=== PATIENT | female | born 1980 | race Caucasian/White ===

== ENCOUNTER 2016-10-27 05:28 | Inpatient (IN) | payer MEDICAID ==
[2016-10-27 07:22] VITALS: RESP 16
[2016-10-27] MEDS ORDERED: MAGNESIUM HYDROXIDE 2,400 MG/10 ML CUP PO PRN (07:26)
[2016-10-27] MEDS ORDERED: ZIPRASIDONE 20 MG VIAL IM PRN (07:26)
[2016-10-27] MEDS ORDERED: MAG HYDROX/AL HYDROX/SIMETH 30 ML CUP PO PRN (07:26)
[2016-10-27] MEDS ORDERED: LORazepam 2 MG/ML SYRINGE IM PRN (07:33)
[2016-10-27] MEDS: NICOTINE 14MG/24HR PATCH TRANSDERM SCH (08:25)
[2016-10-27] MEDS: LORazepam 1 MG TAB PO PRN (16:24)
[2016-10-27] MEDS: ACETAMINOPHEN TAB 325 MG TAB PO PRN (16:24)
[2016-10-27] MEDS: QUEtiapine 200 MG TAB PO SCH (21:39)
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
[2016-10-28 06:52] VITALS: BP 120/74; PULSE 99; TEMP 98.2
[2016-10-28] MEDS: NICOTINE 14MG/24HR PATCH TRANSDERM SCH ×2 (07:55→09:00)
[2016-10-28] MEDS: DULoxetine HCL 30 MG CAPSULE.DR PO SCH (07:55)
[2016-10-28] MEDS: LORazepam 1 MG TAB PO PRN ×2 (08:58→21:10)
[2016-10-28 10:02] LABS: ALT 49 U/L (9-52); AST 32 U/L (14-36); Alkaline Phosphatase 58 U/L (38-126); Blood Urea Nitrogen 8 mg/dL (7-17); Calcium 8.8 mg/dL (8.4-10.2); Chloride 104 mmol/L (98-107); Glucose 92 mg/dL (74-99); Non-African American GFR(MDRD) >60 (>60 ml/min/1.73 sqM); Potassium 3.3 mmol/L (3.5-5.1); Sodium 140 mmol/L (137-145); Total Bilirubin 0.3 mg/dL (0.2-1.3); Total Protein 5.7 g/dL (6.3-8.2)
[2016-10-28 10:09] LABS: Basophils % (A) 1 %; CH 30.4; CHCM 33.7; Eosinophils # (A) 0.2 k/uL (0-0.7); Eosinophils % (A) 4 %; HCT 32.8 % (34.0-46.0); HDW 2.61; HGB 10.9 gm/dL (11.4-16.0); Luc % (Auto) 3; Lymphocytes # (A) 3.4 k/uL (1.0-4.8); Lymphocytes % (A) 56 %; MCH 30.1 pg (25.0-35.0); MCHC 33.2 g/dL (31.0-37.0); MCV 90.6 fL (80.0-100.0); Mean Platelet Volume 7.8; Monocytes # (A) 0.3 k/uL (0-1.0); Monocytes % (A) 5 %; Neutrophils % (A) 32 %; RBC 3.63 m/uL (3.80-5.40); RDW 15.3 % (11.5-15.5); WBC 6.1 k/uL (3.8-10.6); WBC (Perox) 6.83
[2016-10-28 10:16] LABS: Anion Gap 7 mmol/L; Carbon Dioxide 29 mmol/L (22-30)
[2016-10-28 12:24] LABS: Manual Review Performed
[2016-10-28 12:25] LABS: RBC Morphology Normal
[2016-10-28] MEDS ORDERED: BACLOFEN 10 MG TAB PO PRN (13:24)
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
[2016-10-28] MEDS: GABAPENTIN 300 MG CAP PO SCH (21:10)
[2016-10-28] MEDS: QUEtiapine 200 MG TAB PO SCH (21:10)
[2016-10-29] MEDS ORDERED: PANTOPRAZOLE 40 MG TABLET PO SCH (07:30)
[2016-10-29] MEDS: DULoxetine HCL 30 MG CAPSULE.DR PO SCH (08:22)
[2016-10-29] MEDS: NICOTINE 14MG/24HR PATCH TRANSDERM SCH (08:22)
[2016-10-29] MEDS: GABAPENTIN 300 MG CAP PO SCH (08:22)
[2016-10-29] MEDS: ACETAMINOPHEN TAB 325 MG TAB PO PRN (08:24)
[2016-10-29] MEDS: LORazepam 1 MG TAB PO PRN (08:25)
[2016-10-29] MEDS ORDERED: MELOXICAM 7.5 MG TAB PO SCH (09:00)
[2016-10-29] MEDS ORDERED: ASPIRIN 81 MG PO SCH (09:00)
--- NOTE | 2016-11-01 21:20 | CONS ---
CONSULTATION CHIEF COMPLAINT: Major depression. HISTORY OF PRESENT ILLNESS: This is another psych admission for this 36-year-old female. She has a longstanding history of depression and also hypertension. She presented to the emergency room with major depression, was admitted. REVIEW OF SYSTEMS: She denies neurologic problems, headaches, change in vision, blurred vision, problems with hearing, cough, hemoptysis, murmurs, rheumatic fever, orthopnea and PND, abdominal pain, vomiting, melena, hematochezia, hematemesis, jaundice, renal disease, urinary tract symptoms or signs, et cetera. PAST MEDICAL HISTORY: Past medical history, family history, and she is not allergic to any medications. Surgically she has had a T and A. She does smoke. PHYSICAL EXAMINATION: Blood pressure 112/78, pulse 76, respirations 16, temperature 98. In general, she appeared to be in no acute distress. Affect is flat. Skin color is normal. Skin is warm, dry. Lymph nodes not enlarged. Head ears eyes, nose, mouth and throat were normal. Neck veins not distended. Thyroid is not enlarged. Chest clear. Cardiac exam was normal. Abdomen soft and nontender. Extremities: Normal. IMPRESSION: Major depression. RECOMMENDATIONS: None. MMODL / IJN: [id number] /
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
== END 2016-10-29 14:05 | disposition home or self-care (01) | DRG 885 ==
LOC: 3MHU 06:33
PROVIDERS: ADMIT Psychiatry & Neurology Psychiatry; ATTEND Psychiatry & Neurology Psychiatry
DX: F33.2 Major depressive disorder, recurrent severe without psychotic features (principal); R45.851 Suicidal ideations; F41.0 Panic disorder [episodic paroxysmal anxiety]; F60.3 Borderline personality disorder; G89.29 Other chronic pain; Y09 Assault by unspecified means; Z79.899 Other long term (current) drug therapy
CPT/HCPCS: 80053; 84443; 85025

== ENCOUNTER 2017-04-12 15:14 | Emergency (ER) | payer OTHER ==
[2017-04-12 15:17] VITALS: BP 122/60; PULSE 79; RESP 16; TEMP 97.6
--- NOTE | 2017-04-12 16:07 | ED ---
Extremity Problem HPI - General Chief complaint: Extremity Problem,Nontraumatic Stated complaint: ring stuck on finger Time Seen by Provider: 04/12/17 15:19 Source: patient, RN notes reviewed Mode of arrival: ambulatory Limitations: no limitations - History of Present Illness Initial comments: This is a 36-year-old female who presents to the emergency department with request to have her ring cut off. Patient states that recently, each morning, she has noticed that she has swelling in her fingers. She presents to the emergency department with request to have a ring cut off of her right middle finger. She states that she is unable to get off by herself. Denies any trauma or injury to the finger. Patient states that she has only been wearing the ringing on her middle finger for the past 3-4 days. Denies fevers or chills , chest pain or shortness breath, abdominal pain, nausea or vomiting. - Related Data Home Medications Medication Instructions Recorded Confirmed clonazePAM [KlonoPIN] 1 mg PO Q12H PRN 08/20/13 10/29/16 Previous Rx's Medication Instructions Recorded Aspirin 81 mg PO DAILY 10/29/16 Baclofen [Lioresal] 20 mg PO BID PRN tab 10/29/16 DULoxetine HCL [Cymbalta] 30 mg PO DAILY #14 cap 10/29/16 Gabapentin [Neurontin] 300 mg PO BID #28 cap 10/29/16 Meloxicam [Mobic] 15 mg PO DAILY tab 10/29/16 Pantoprazole [Protonix] 40 mg PO AC-BRKFST tab 10/29/16 QUEtiapine FUMARATE [SEROquel] 600 mg PO HS #28 tab 10/29/16 Allergies Allergy/AdvReac Type Severity Reaction Status Date / Time No Known Allergies Allergy Verified 04/12/17 15:16 Review of Systems ROS Statement: Those systems with pertinent positive or pertinent negative responses have been documented in the HPI. ROS Other: All systems not noted in ROS Statement are negative. Past Medical History Past Medical History: GERD/Reflux Additional Past Medical History / Comment(s): chronic back pain, back tumor History of Any Multi-Drug Resistant Organisms: None Reported Past Surgical History: Tonsillectomy Past Psychological History: Anxiety, Panic Disorder Smoking Status: Current every day smoker Past Alcohol Use History: None Reported Past Drug Use History: None Reported General Exam - General Exam Comments Initial Comments: General: Awake and alert, well-developed; in no apparent distress. HEENT: Head atraumatic, normocephalic. Pupils are equal, round and reactive to light. Extraocular movements intact. Oropharynx moist without erythema or exudate. Neck: Supple. Normal ROM. Cardiovascular: Regular rate and rhythm. No murmurs, rubs or gallops. Chest symmetrical. Musculoskeletal: Normal ROM of right middle finger. There is an approximately 1.5 cm in width silver ring that is tight on the finger. Notable soft tissue swelling distal to the ring. Skin: [place], warm and dry without rashes or lesions. Neurological: Alert and oriented x3. CN II-XII grossly intact. Speech is fluent and answers are appropriate. No focal neuro deficits. Psychiatric: Normal mood and affect. No overt signs of depression or anxiety noted. Limitations: no limitations Course Vital Signs 04/12/17 15:14 Temperature 97.6 F Pulse Rate 79 Respiratory 16 Rate Blood Pressure 122/60 O2 Sat by Pulse 99 Oximetry Medical Decision Making - Medical Decision Making This is a 36-year-old female who presents to the emergency department with request to have a ring removed from her right middle finger. There is swelling proximal to the ring and ring is tight on finger. The saw-like ring remover and a pair of Frank scissors were used to safely remove the ring from the patient's finger. This took approximately a half an hour due to the width and strength of patient's ring. She tolerated the procedure well without complication. She is neurovascularly intact. Patient is going to follow up with her primary care provider regarding recent swelling of her fingers. Patient is in no acute distress will be discharged home. She is in agreement voices understanding. All questions were answered. Disposition Clinical Impression: Tight ring on finger Disposition: HOME SELF-CARE Condition: Good Instructions: Swollen Joint (ED) Additional Instructions: Please follow up with primary care provider within 1-2 days. Return to emergency department if symptoms should worsen or any concerns arise. Referrals: Shankar Sevilla MD [Primary Care Provider] - 1-2 days Time of Disposition: 16:09
== END 2017-04-12 16:18 | disposition home or self-care (01) ==
LOC: EC 15:14
DX: M79.89 Other specified soft tissue disorders (principal); F17.200 Nicotine dependence, unspecified, uncomplicated; Z86.018 Personal history of other benign neoplasm
CPT/HCPCS: 99283

== ENCOUNTER 2017-05-19 19:50 | Emergency (ER) | payer OTHER ==
[2017-05-19 19:56] VITALS: RESP 18
[2017-05-19] MEDS ORDERED: RX INFO: IV CONTRAST WAS GIVEN 1 EACH MISC MISCELLANE PRN (20:31)
[2017-05-19] MEDS ORDERED: SODIUM CHLORIDE 0.9% 1,000 ML IV STA (20:31)
[2017-05-19] MEDS ORDERED: LORazepam 2 MG/ML INJ IV STA (20:31)
[2017-05-19 20:52] LABS: Appearance,Urine Cloudy (Clear); Bacteria,Urine Occasional /hpf; Bilirubin,Urine Negative (Negative); Blood,Urine Negative (Negative); Color,Urine Yellow; Glucose,Urine (UA) Negative (Negative); Ketones,Urine Trace (Negative); Leukocyte Esterase,Urine Large (Negative); Mucus,Urine Moderate /hpf; Nitrite,Urine Negative (Negative); PH, Urine 5.5 (5.0-8.0); Protein,Urine 1+ (Negative); RBC,Urine 41 /hpf (0-5); Specific Gravity,Urine 1.023 (1.001-1.035); Squamous Epithelial Cell,Urine 7 /hpf (0-4); WBC,Urine 123 /hpf (0-5)
[2017-05-19 21:14] LABS: Basophils # (A) 0.1 k/uL (0-0.2); Basophils % (A) 1 %; Eosinophils # (A) 0.2 k/uL (0-0.7); Eosinophils % (A) 1 %; HCT 35.8 % (34.0-46.0); Lymphocytes # (A) 4.4 k/uL (1.0-4.8); Lymphocytes % (A) 34 %; MCH 26.6 pg (25.0-35.0); MCHC 33.5 g/dL (31.0-37.0); MCV 79.6 fL (80.0-100.0); Mean Platelet Volume 7.9; Monocytes # (A) 0.7 k/uL (0-1.0); Monocytes % (A) 5 %; Neutrophils # (A) 7.2 k/uL (1.3-7.7); Neutrophils % (A) 57 %; Platelet Count 379 k/uL (150-450); RDW 15.8 % (11.5-15.5); WBC 12.7 k/uL (3.8-10.6)
[2017-05-19 21:22] LABS: Partial Thromboplastin Time 23.1 sec (22.0-30.0); Prothrombin Time 10.2 sec (9.0-12.0)
[2017-05-19 21:23] LABS: ALT 21 U/L (9-52); AST 23 U/L (14-36); Albumin 4.8 g/dL (3.5-5.0); Alkaline Phosphatase 71 U/L (38-126); Anion Gap 19 mmol/L; Blood Urea Nitrogen 20 mg/dL (7-17); Calcium 9.9 mg/dL (8.4-10.2); Carbon Dioxide 20 mmol/L (22-30); Chloride 98 mmol/L (98-107); Glucose 69 mg/dL (74-99); Potassium 3.7 mmol/L (3.5-5.1); Sodium 137 mmol/L (137-145); Total Bilirubin 0.6 mg/dL (0.2-1.3); Total Protein 7.9 g/dL (6.3-8.2)
--- NOTE | 2017-05-19 21:23 | ED ---
General Adult HPI - General Chief complaint: Recheck/Abnormal Lab/Rx Stated complaint: Back/chest pain Time Seen by Provider: 05/19/17 20:20 Source: patient, RN notes reviewed, old records reviewed Mode of arrival: ambulatory Limitations: no limitations - History of Present Illness Initial comments: Patient 37-year-old female presenting to the emergency room today with chief complaint of increased right-sided upper back pain. Patient does admit that she was diagnosed with a schwannoma approximately 5 years ago. She states that she try to follow-up with the surgeon wanted did not want perform surgery. She states she never followed back up to have it checked. She is concerned that it has grown got larger. She does admit that last 2 months been having increased pain. She is now experiencing right side of the anterior chest wall as well. She does admit that she feels that it's worse with certain movements of if she takes deep breath. She denies any injury or trauma. Denies any other complaints or symptoms. Patient denies any recent fever, chills, shortness of breath, abdominal pain, nausea or vomiting, numbness or tingling, dysuria or hematuria, constipation or diarrhea, headaches or visual changes, or any other complaints. - Related Data Home Medications Medication Instructions Recorded Confirmed clonazePAM [KlonoPIN] 1 mg PO Q12H PRN 08/20/13 10/29/16 DULoxetine HCL [Cymbalta] 60 mg PO DAILY 05/19/17 05/19/17 Multivitamins, Thera [Multivitamin 1 tab PO DAILY 05/19/17 05/19/17 (formulary)] Previous Rx's Medication Instructions Recorded Aspirin 81 mg PO DAILY 10/29/16 Baclofen [Lioresal] 20 mg PO BID PRN tab 10/29/16 Gabapentin [Neurontin] 300 mg PO BID #28 cap 10/29/16 Meloxicam [Mobic] 15 mg PO DAILY tab 10/29/16 Pantoprazole [Protonix] 40 mg PO AC-BRKFST tab 10/29/16 QUEtiapine FUMARATE [SEROquel] 600 mg PO HS #28 tab 10/29/16 Sulfamethox-Tmp 800-160Mg [Bactrim 1 tab PO Q12HR #14 tab 05/19/17 DS 800-160 mg] Allergies Allergy/AdvReac Type Severity Reaction Status Date / Time No Known Allergies Allergy Verified 05/19/17 19:56 Review of Systems ROS Statement: Those systems with pertinent positive or pertinent negative responses have been documented in the HPI. ROS Other: All systems not noted in ROS Statement are negative. Past Medical History Past Medical History: GERD/Reflux Additional Past Medical History / Comment(s): chronic back pain, back tumor History of Any Multi-Drug Resistant Organisms: None Reported Past Surgical History: Tonsillectomy Past Psychological History: Anxiety, Panic Disorder Smoking Status: Current every day smoker Past Alcohol Use History: None Reported Past Drug Use History: None Reported General Exam - General Exam Comments Initial Comments: General: The patient is awake and alert, in no distress, and does not appear acutely ill. Eye: Pupils are equal, round and reactive to light, extra-ocular movements are intact. No nystagmus. There is normal conjunctiva bilaterally. No signs of icterus. Ears, nose, mouth and throat: There are moist mucous membranes and no oral lesions. Neck: The neck is supple, there is no tenderness or JVD. Cardiovascular: There is a regular rate and rhythm. No murmur, rub or gallop is appreciated. Tender palpation on the right side of the anterior chest wall. Respiratory: Lungs are clear to auscultation, respirations are non-labored, breath sounds are equal. No wheezes, stridor, rales, or rhonchi. Musculoskeletal: Normal ROM, no tenderness. Strength 5/5. Sensation intact. Pulses equal bilaterally 2+. Neurological: A&O x 3. CN II-XII intact, There are no obvious motor or sensory deficits. Coordination appears grossly intact. Speech is normal. Skin: Skin is warm and dry and no rashes or lesions are noted. Psychiatric: Cooperative, appropriate mood & affect, normal judgment. Limitations: no limitations Course Vital Signs 05/19/17 05/19/17 05/19/17 19:53 21:04 22:30 Temperature 98.0 F 97.7 F Pulse Rate 111 H 94 90 Respiratory 18 18 18 Rate Blood Pressure 135/84 126/85 133/83 O2 Sat by Pulse 99 99 99 Oximetry EKG Findings - EKG Comments: EKG Findings:: EKG performed at 2044: Shows normal sinus rhythm at 89 bpm. UT interval is 142. QRS 88. QT/QTc is 400/486. No acute ST Changes. Medical Decision Making - Medical Decision Making Patient's labs been reviewed are patient's EKG shows normal sinus rhythm. Enzymes are negative. Patient does admit that she's been having symptoms over the last [address] does show stable findings on the right side of mediastinum. Patient is advised that she does need follow-up with both family physician and will be given specialist to follow-up with. Patient will be given information for hematology oncology and cardiothoracic surgeon. Patient' s urinalysis does show evidence for urinary tract infection given dose of Rocephin. Patient requesting pain medication here. She states she is not a drug addict. Advised her that she should take anti-inflammatories for this that we cannot prescribe narcotics. She came upset states that she will hates coming to the hospital and will just by stuff off the street. - Lab Data Result diagrams: 05/19/17 21:00 05/19/17 21:00 Lab Results 05/19/17 05/19/17 05/19/17 Range/Units 20:40 20:40 21:00 WBC (3.8-10.6) k/uL RBC (3.80-5.40) m/uL Hgb (11.4-16.0) gm/dL Hct (34.0-46.0) % MCV (80.0-100.0) fL MCH (25.0-35.0) pg MCHC (31.0-37.0) g/dL RDW (11.5-15.5) % Plt Count (150-450) k/uL Neutrophils % % Lymphocytes % % Monocytes % % Eosinophils % % Basophils % % Neutrophils # (1.3-7.7) k/uL Lymphocytes # (1.0-4.8) k/uL Monocytes # (0-1.0) k/uL Eosinophils # (0-0.7) k/uL Basophils # (0-0.2) k/uL PT (9.0-12.0) sec INR (<1.2) APTT (22.0-30.0) sec Sodium (137-145) mmol/L Potassium (3.5-5.1) mmol/L Chloride (98-107) mmol/L Carbon Dioxide (22-30) mmol/L Anion Gap mmol/L BUN (7-17) mg/dL Creatinine (0.52-1.04) mg/dL Est GFR (CKD-EPI)AfAm (>60 ml/min/1.73 sqM) Est GFR (CKD-EPI)NonAf (>60 ml/min/1.73 sqM) Glucose (74-99) mg/dL Calcium (8.4-10.2) mg/dL Total Bilirubin (0.2-1.3) mg/dL AST (14-36) U/L ALT (9-52) U/L Alkaline Phosphatase (38-126) U/L Total Creatine Kinase 93 (30-135) U/L CK-MB (CK-2) 0.6 (0.0-2.4) ng/mL CK-MB (CK-2) Rel Index 0.6 Troponin I <0.012 (0.000-0.034) ng/mL Total Protein (6.3-8.2) g/dL Albumin (3.5-5.0) g/dL Urine Color Yellow Urine Appearance Cloudy H (Clear) Urine pH 5.5 (5.0-8.0) Ur Specific [place] 1.023 (1.001-1.035) Urine Protein 1+ H (Negative) Urine Glucose (UA) Negative (Negative) Urine Ketones Trace H (Negative) Urine Blood Negative (Negative) Urine Nitrite Negative (Negative) Urine Bilirubin Negative (Negative) Urine Urobilinogen 2.0 (<2.0) mg/dL Ur Leukocyte Esterase Large H (Negative) Urine RBC 41 H (0-5) /hpf Urine WBC 123 H (0-5) /hpf Ur Squamous Epith Cells 7 H (0-4) /hpf Urine Bacteria Occasional H (None) /hpf Urine Mucus Moderate H (None) /hpf Urine HCG, Qual Not Detected (Not Detectd) 05/19/17 05/19/17 05/19/17 Range/Units 21:00 21:00 21:00 WBC 12.7 H (3.8-10.6) k/uL RBC 4.50 (3.80-5.40) m/uL Hgb 12.0 (11.4-16.0) gm/dL Hct 35.8 (34.0-46.0) % MCV 79.6 L (80.0-100.0) fL MCH 26.6 (25.0-35.0) pg MCHC 33.5 (31.0-37.0) g/dL RDW 15.8 H (11.5-15.5) % Plt Count 379 (150-450) k/uL Neutrophils % 57 % Lymphocytes % 34 % Monocytes % 5 % Eosinophils % 1 % Basophils % 1 % Neutrophils # 7.2 (1.3-7.7) k/uL Lymphocytes # 4.4 (1.0-4.8) k/uL Monocytes # 0.7 (0-1.0) k/uL Eosinophils # 0.2 (0-0.7) k/uL Basophils # 0.1 (0-0.2) k/uL PT 10.2 (9.0-12.0) sec INR 1.0 (<1.2) APTT 23.1 (22.0-30.0) sec Sodium 137 (137-145) mmol/L Potassium 3.7 (3.5-5.1) mmol/L Chloride 98 (98-107) mmol/L Carbon Dioxide 20 L (22-30) mmol/L Anion Gap 19 mmol/L BUN 20 H (7-17) mg/dL Creatinine 0.68 (0.52-1.04) mg/dL Est GFR (CKD-EPI)AfAm >90 (>60 ml/min/1.73 sqM) Est GFR (CKD-EPI)NonAf >90 (>60 ml/min/1.73 sqM) Glucose 69 L (74-99) mg/dL Calcium 9.9 (8.4-10.2) mg/dL Total Bilirubin 0.6 (0.2-1.3) mg/dL AST 23 (14-36) U/L ALT 21 (9-52) U/L Alkaline Phosphatase 71 (38-126) U/L Total Creatine Kinase (30-135) U/L CK-MB (CK-2) (0.0-2.4) ng/mL CK-MB (CK-2) Rel Index Troponin I (0.000-0.034) ng/mL Total Protein 7.9 (6.3-8.2) g/dL Albumin 4.8 (3.5-5.0) g/dL Urine Color Urine Appearance (Clear) Urine pH (5.0-8.0) Ur Specific [place] (1.001-1.035) Urine Protein (Negative) Urine Glucose (UA) (Negative) Urine Ketones (Negative) Urine Blood (Negative) Urine Nitrite (Negative) Urine Bilirubin (Negative) Urine Urobilinogen (<2.0) mg/dL Ur Leukocyte Esterase (Negative) Urine RBC (0-5) /hpf Urine WBC (0-5) /hpf Ur Squamous Epith Cells (0-4) /hpf Urine Bacteria (None) /hpf Urine Mucus (None) /hpf Urine HCG, Qual (Not Detectd) Disposition Clinical Impression: UTI (urinary tract infection), Mediastinal mass Disposition: HOME SELF-CARE Condition: Good Instructions: Urinary Tract Infection in Women (ED) Additional Instructions: Please follow-up the family doctor and specialist as discussed over the next 2 days. Please return to emergency room if any symptoms increase or worsen. Prescriptions: Sulfamethox-Tmp 800-160Mg [Bactrim DS 800-160 mg] 1 tab PO Q12HR #14 tab Referrals: Shankar Sevilla MD [Primary Care Provider] - 1-2 days Aleksandar Lu MD [STAFF PHYSICIAN] - 1-2 days Steve Morales MD [STAFF PHYSICIAN] - 1-2 days Time of Disposition: 22:37
[2017-05-19 21:33] LABS: Creatine Kinase 93 U/L (30-135)
[2017-05-19 21:46] LABS: Creatine Kinase MB 0.6 ng/mL (0.0-2.4); Troponin I <0.012 ng/mL (0.000-0.034)
--- NOTE | 2017-05-19 22:21 | CT ---
EXAMINATION TYPE: CT angio chest with contrast and with 3-D reconstruction renderings DATE OF EXAM: 05/19/2017 9:56 PM COMPARISON: 03/28/2012 HISTORY: CHEST PAIN CT DLP: 268.5 mGycm Automated exposure control for dose reduction was used. CONTRAST: CTA scan of the thorax is performed with IV Contrast, patient injected with 60 mL of Isovue 370, pulm onary embolism protocol. The reconstructions. FINDINGS: LUNGS, AIRWAYS, AND PLEURAL SPACES: The lungs are grossly clear, without focal lung consolidation. Ho wever, not seen on the prior study is a subtle mosaic pattern of alternating hyperinflation with nonh yperinflation suggesting asthma if clinically corroborated. Also not seen on the prior study is a sub tle dependent groundglass opacity pattern suggesting mild interstitial pulmonary edema if clinically corroborated. There is no pleural effusion or pneumothorax seen. The tracheobronchial tree is courtney nt. MEDIASTINUM: There is satisfactory enhancement of the pulmonary artery and its branches, there is no CT evidence for pulmonary embolism. There are no greater than 1 cm hilar or mediastinal lymph nodes. The previously seen smoothly marginated right posterior paraspinal mass has similar appearance as se en on the prior CT, likely reflecting neurogenic tumor such as schwannoma or neurofibroma there is mi [id number] cardiomegaly, no pericardial effusion. No pericardial effusion is seen. The aorta is u nremarkable. SKELETAL STRUCTURES: Unremarkable. OTHER: Cholelithiasis is incidentally noted. IMPRESSION: 1. NEGATIVE FOR PULMONARY EMBOLISM. 2. MILD LUNG PARENCHYMAL FINDINGS REQUIRING CLINICAL CORROBORATION DISCUSSED. 3. MILD/MODERATE CARDIOMEGALY. 4. STABLE APPEARING RIGHT POSTERIOR MEDIASTINAL MASS.
[2017-05-19] MEDS ORDERED: KETOROLAC 30 MG/ML 1 ML VIAL IVP STA (22:30)
[2017-05-19] MEDS ORDERED: cefTRIAXone IN SWFI 1,000 MG/10 ML SYRINGE IVP STA (22:30)
[2017-05-19 22:32] VITALS: PULSE 90; TEMP 97.7
[2017-05-19 22:46] VITALS: BP 133/85
== END 2017-05-19 22:46 | disposition home or self-care (01) ==
LOC: EC 19:50
DX: N39.0 Urinary tract infection, site not specified (principal); R22.2 Localized swelling, mass and lump, trunk; R07.89 Other chest pain; M54.6 Pain in thoracic spine; F41.0 Panic disorder [episodic paroxysmal anxiety]; F17.200 Nicotine dependence, unspecified, uncomplicated; Z86.03 Personal history of neoplasm of uncertain behavior; Z79.899 Other long term (current) drug therapy
CPT/HCPCS: 36415; 71275; 80053; 81001; 81025; 82550; 82553; 84484; 85025; 85610; 85730; 93005; 96361; 96374; 96375; 99285

== ENCOUNTER 2019-03-07 13:05 | Emergency (ER) | payer OTHER ==
[2019-03-07 13:30] VITALS: BP 165/98; PULSE 89; RESP 20; TEMP 98.9
--- NOTE | 2019-03-07 14:27 | ED ---
Back Pain HPI - General Chief Complaint: Back Pain/Injury Stated Complaint: tumor on back, pain Time Seen by Provider: 03/07/19 13:59 Source: patient Limitations: no limitations - History of Present Illness Initial Comments: Patient is a 38-year-old female presenting to emergency Department with complaints of thoracic back pain that has been increasing for 1 month. Patient states she has a growth or tumor on the right side of her mid back that has been there for 7 years now. Patient states she has not seen a doctor for this. She takes ibuprofen and Laura's for the pain. She admits she's been getting the Laura's off the street. Patient presents today because the pain has been increasing the last few days. Patient denies any fever, chills, numbness and tingling into her lower extremities, bilateral bowel or bladder incontinence. She denies shortness of breath, chest pain. She has no other complaints at this time. Upon arrival to ER, vital signs are stable. - Related Data Home Medications Medication Instructions Recorded Confirmed clonazePAM [KlonoPIN] 1 mg PO Q12H PRN 08/20/10/29/16 DULoxetine HCL [Cymbalta] 60 mg PO DAILY 05/19/17 05/19/17 Multivitamins, Thera [Multivitamin 1 tab PO DAILY 05/19/17 05/19/17 (formulary)] Previous Rx's Medication Instructions Recorded Aspirin 81 mg PO DAILY 10/29/16 Baclofen [Lioresal] 20 mg PO BID PRN tab 10/29/16 Gabapentin [Neurontin] 300 mg PO BID #28 cap 10/29/16 Meloxicam [Mobic] 15 mg PO DAILY tab 10/29/16 Pantoprazole [Protonix] 40 mg PO AC-BRKFST tab 10/29/16 QUEtiapine FUMARATE [SEROquel] 600 mg PO HS #28 tab 10/29/16 Sulfamethox-Tmp 800-160Mg [Bactrim 1 tab PO Q12HR #14 tab 05/19/17 DS 800-160 mg] Allergies Allergy/AdvReac Type Severity Reaction Status Date / Time No Known Allergies Allergy Verified 03/07/19 13:30 Review of Systems ROS Statement: Those systems with pertinent positive or pertinent negative responses have been documented in the HPI. ROS Other: All systems not noted in ROS Statement are negative. Past Medical History Past Medical History: GERD/Reflux Additional Past Medical History / Comment(s): chronic back pain, back tumor History of Any Multi-Drug Resistant Organisms: None Reported Past Surgical History: Tonsillectomy Past Psychological History: Anxiety, Panic Disorder Smoking Status: Current every day smoker Past Alcohol Use History: None Reported Past Drug Use History: None Reported General Exam - General Exam Comments Initial Comments: GENERAL: Patient is teary-eyed, uncomfortable. HEAD: Atraumatic, normocephalic. EYES: Pupils equal round and reactive to light, extraocular movements intact, sclera anicteric, conjunctiva are normal. ENT: Nares patent, oropharynx clear without exudates. Moist mucous membranes. NECK: Normal range of motion, supple without lymphadenopathy or JVD. LUNGS: Breath sounds clear to auscultation bilaterally and equal. No wheezes rales or rhonchi. HEART: Regular rate and rhythm without murmurs, rubs or gallops. ABDOMEN: Soft, nontender, normoactive bowel sounds. No guarding, no rebound. No masses appreciated. : Deferred EXTREMITIES: Normal range of motion, no pitting or edema. No clubbing or cyanosis. Patient has full trunk range of motion. She does have pain with palpation of the right thoracic area with some soft tissue swelling present. No overlying bruising or erythema. NEUROLOGICAL: Normal speech, normal gait. PSYCH: Patient is rude, requesting pain and anxiety medication more than once. SKIN: Warm, Dry, normal turgor, no rashes or lesions noted. Limitations: no limitations Course Vital Signs 03/07/19 13:27 Temperature 98.9 F Pulse Rate 89 Respiratory 20 Rate Blood Pressure 165/98 O2 Sat by Pulse 99 Oximetry Medical Decision Making - Medical Decision Making Patient is a 38-year-old female presenting with right-sided thoracic pain that has been ongoing for years. She has a history of a growth on the right thoracic area that has been there for 7 years. She has not seen a doctor for this. She takes ibuprofen and Laura she buys off the street. She states her pain has been increasing sweats when she is here today. X-ray showed no acute abnormalities other than some mild soft tissue swelling. I discussed these findings with the patient. She is demanding pain medicine and anxiety medicine she does not currently take anything for anxiety. I explained to her that she needs to go to her PCP or a psychiatrist for anxiety medication. Patient will be given Toradol for pain relief and given a starter pack of tramadol. She is in agreement with this plan of care. She needs to follow-up with her PCP. She is stable for discharge at this time. Disposition Clinical Impression: Right-sided thoracic back pain Disposition: HOME SELF-CARE Condition: Stable Instructions (If sedation given, give patient instructions): Acute Low Back Pain (ED) Additional Instructions: Please return to the Emergency Department if symptoms worsen or any other concerns. Follow-up with her PCP for further management. Is patient prescribed a controlled substance at d/c from ED?: No Referrals: Nonstaff,Physician [Primary Care Provider] - 1-2 days
[2019-03-07] MEDS ORDERED: KETOROLAC 60 MG/2 ML VIAL IM STA (14:40)
--- NOTE | 2019-03-07 15:00 | XR ---
EXAMINATION TYPE: XR thoracic spine 2V DATE OF EXAM: 03/07/2019 COMPARISON: None HISTORY: Tumor in back for 7 years TECHNIQUE: Three-view thoracic spine FINDINGS: There are 12 thoracic type vertebral bodies. Pedicles are intact. Disc heights are unremark able. Vertebral body heights are preserved. There is a scoliosis present with convexity to the right centered at T12. There is soft tissue thickening along the superior medial right upper lobe may reflect the patient's reported tumor. IMPRESSION: 1. Scoliosis thoracolumbar spine. 2. Soft tissue thickening superior medial right apex, present on CT chest 05/19/2017
[2019-03-07] MEDS ORDERED: traMADol 50 MG STARTER PACK 3 TAB BTL PO STA (15:11)
== END 2019-03-07 15:20 | disposition home or self-care (01) ==
LOC: EC 13:05
DX: M54.6 Pain in thoracic spine (principal); F41.0 Panic disorder [episodic paroxysmal anxiety]; F17.200 Nicotine dependence, unspecified, uncomplicated; Z79.899 Other long term (current) drug therapy
CPT/HCPCS: 72070; 99283; 96372; J1885

== ENCOUNTER 2020-06-12 20:51 | Emergency (ER) | payer OTHER ==
[2020-06-12 21:01] VITALS: BP 146/79; PULSE 112; RESP 18; TEMP 98.8
[2020-06-12] MEDS ORDERED: KETOROLAC 15 MG/ML 1 ML VIAL IM STA (21:56)
--- NOTE | 2020-06-12 22:01 | ED ---
Extremity Problem HPI - General Chief complaint: Extremity Problem,Nontraumatic Stated complaint: Glass in both feet Source: patient, RN notes reviewed Mode of arrival: wheelchair Limitations: no limitations - History of Present Illness Initial comments: Patient is a 40-year-old female that presents to the emergency department complaining of bilateral feet pain. She notes that some of Tylenol and her apartment is peeling up and when she was walking through barefooted she caught her left big toe and right heel on the unstuck linoleum/tile. She notes that for the past 3 days she's been having pain has been difficult to walk. She notes pain is an 8 out of 10 constant with no relief from any home pain medications. Her significant other states that he was trying to help bipolar disorder he could find out and noted that on her right heel he noted like a skin flap or something but couldn't find it upon inspection. Patient was concerned about her left toe as she states that has something stuck in it or feels like he has something stuck in it. She denied any chest pain short of breath headache nausea vomiting diarrhea constipation fever fatigue chills weakness numbness tingling decreased range of motion or strength. - Related Data Home Medications Medication Instructions Recorded Confirmed clonazePAM [KlonoPIN] 1 mg PO Q12H PRN 08/20/13 10/29/16 DULoxetine HCL [Cymbalta] 60 mg PO DAILY 05/19/17 05/19/17 Multivitamins, Thera [Multivitamin 1 tab PO DAILY 05/19/17 05/19/17 (formulary)] Previous Rx's Medication Instructions Recorded Aspirin 81 mg PO DAILY 10/29/16 Baclofen [Lioresal] 20 mg PO BID PRN tab 10/29/16 Gabapentin [Neurontin] 300 mg PO BID #28 cap 10/29/16 Meloxicam [Mobic] 15 mg PO DAILY tab 10/29/16 Pantoprazole [Protonix] 40 mg PO AC-BRKFST tab 10/29/16 QUEtiapine FUMARATE [SEROquel] 600 mg PO HS #28 tab 10/29/16 Sulfamethox-Tmp 800-160Mg [Bactrim 1 tab PO Q12HR #14 tab 05/19/17 DS 800-160 mg] Allergies Allergy/AdvReac Type Severity Reaction Status Date / Time No Known Allergies Allergy Verified 06/12/20 20:59 Review of Systems ROS Statement: Those systems with pertinent positive or pertinent negative responses have been documented in the HPI. ROS Other: All systems not noted in ROS Statement are negative. Past Medical History Past Medical History: GERD/Reflux Additional Past Medical History / Comment(s): chronic back pain, back tumor History of Any Multi-Drug Resistant Organisms: None Reported Past Surgical History: Tonsillectomy Past Psychological History: Anxiety, Panic Disorder Past Alcohol Use History: None Reported Past Drug Use History: None Reported General Exam Limitations: no limitations General appearance: alert, in distress Head exam: Present: atraumatic, normocephalic, normal inspection Eye exam: Present: normal appearance, PERRL, EOMI. Absent: scleral icterus, conjunctival injection, periorbital swelling Neck exam: Present: normal inspection. Absent: tenderness, meningismus, lymphadenopathy Respiratory exam: Present: normal lung sounds bilaterally. Absent: respiratory distress, wheezes, rales, rhonchi, stridor Cardiovascular Exam: Present: regular rate, normal rhythm, normal heart sounds. Absent: systolic murmur, diastolic murmur, rubs, gallop, clicks GI/Abdominal exam: Present: soft, normal bowel sounds. Absent: distended, tenderness, guarding, rebound, rigid Extremities exam: Present: normal inspection, full ROM, normal capillary refill, other (Left great toe has a blister on the plantar side with a small abrasion possible point of entry for foreign body.). Absent: tenderness, pedal edema, joint swelling, calf tenderness Neurological exam: Present: alert, oriented X3, CN II-XII intact Psychiatric exam: Present: normal affect, normal mood Skin exam: Present: warm, dry, intact, normal color. Absent: rash Course Vital Signs 06/12/20 20:56 Temperature 98.8 F Pulse Rate 112 H Respiratory 18 Rate Blood Pressure 146/79 O2 Sat by Pulse 98 Oximetry Medical Decision Making - Medical Decision Making 40-year-old female complaining of foreign body sensation in bilateral feet. X-ray of the left toes, 15 mg of Toradol ordered. X-ray negative for any acute fractures dislocations or radiopaque foreign bodies. Case discussed with Dr. Us outpatient discharge home with follow-up to primary care. - Radiology Data Radiology results: report reviewed, image reviewed Left toe x-ray: No acute fracture dislocation. No radiopaque foreign body. Disposition Clinical Impression: Bilateral foot pain Disposition: HOME SELF-CARE Condition: Stable Instructions (If sedation given, give patient instructions): Metatarsalgia (DC), Arthralgia (ED) Additional Instructions: Please return to the Emergency Department if symptoms worsen or any other concerns. Follow-up with primary care in 3-5 days. Wear shoes around house to avoid any splinters glass shards or tile pieces. Can soak feet to soften skin to help any possible small pieces of foreign body to work their way out. Can take [id number] pain medications for symptomatic control. Is patient prescribed a controlled substance at d/c from ED?: No Referrals: Nonstaff,Physician [REFERRING] - 1-2 days Time of Disposition: 22:40
--- NOTE | 2020-06-12 22:25 | XR ---
EXAMINATION TYPE: XR toes LT DATE OF EXAM: 06/12/2020 COMPARISON: 2 HISTORY: . Left great toe pain, possible foreign body from floor tile. Puncture wound to plantar surf melina of distal digit. TECHNIQUE: Coned-down AP, oblique, and lateral views of the first digit of the left foot obtained. FINDINGS: No radiopaque foreign body. No acute fracture. No dislocation. Joint spaces are maintained. There is mild hallux valgus. Normal mineralization. No significant soft tissue swelling. IMPRESSION: No acute fracture or dislocation. No radiopaque foreign body.
== END 2020-06-12 23:01 | disposition home or self-care (01) ==
LOC: EC 20:51 → SUPCPDRO 20:51 → EC 23:01
DX: M79.672 Pain in left foot (principal); M79.671 Pain in right foot; K21.9 Gastro-esophageal reflux disease without esophagitis; F41.9 Anxiety disorder, unspecified
CPT/HCPCS: 73660; 99283; 96372; J1885

== ENCOUNTER 2020-09-30 00:16 | Emergency (ER) | payer OTHER ==
[2020-09-30 00:30] VITALS: RESP 18
[2020-09-30] MEDS ORDERED: hydrOXYzine HCL 25 MG TAB PO STA (01:00)
[2020-09-30] MEDS ORDERED: FAMOTIDINE 20 MG TAB PO STA (01:00)
[2020-09-30] MEDS ORDERED: dexAMETHasone 2 MG TAB PO STA (01:00)
[2020-09-30] MEDS ORDERED: AMOXIC-POT CLAV 875-125MG 1 EACH TAB PO STA (01:00)
[2020-09-30] MEDS ORDERED: AMOXIC-POT CLAV 875MG STARTER PACK 2 TAB BTL PO STA (01:00)
--- NOTE | 2020-09-30 01:00 | ED ---
Skin/Abscess/FB HPI - General Chief complaint: Extremity Problem,Nontraumatic Stated complaint: foot swelling, arm abscess Time Seen by Provider: 09/30/20 00:44 Source: patient, RN notes reviewed, old records reviewed Mode of arrival: wheelchair - History of Present Illness Initial comments: This is a 40-year-old female to the ER today for evaluation of multiple bug bites of unsure source. Patient denies any travel camping or spending of any. time in the [place]. No family members have similar bites, they're itchy with swelling and believes the swelling is causing pain, they do feel warm with no treatment at home. Patient has never prior similar reaction like this, patient has no real significant medical history aside from reflux and back pain MD complaint: insect bite/sting -: hour(s) Location: LLE, RLE, L foot, R foot Severity: moderate Severity scale (1-10): 6 Quality: aching Consistency: intermittent Improves with: none Worsens with: none Associated symptoms: denies other symptoms Treatments Prior to Arrival: none - Related Data Home Medications Medication Instructions Recorded Confirmed clonazePAM [KlonoPIN] 1 mg PO Q12H PRN 08/20/13 10/29/16 DULoxetine HCL [Cymbalta] 60 mg PO DAILY 05/19/17 05/19/17 Multivitamins, Thera [Multivitamin 1 tab PO DAILY 05/19/17 05/19/17 (formulary)] Previous Rx's Medication Instructions Recorded Aspirin 81 mg PO DAILY 10/29/16 Baclofen [Lioresal] 20 mg PO BID PRN tab 10/29/16 Gabapentin [Neurontin] 300 mg PO BID #28 cap 10/29/16 Meloxicam [Mobic] 15 mg PO DAILY tab 10/29/16 Pantoprazole [Protonix] 40 mg PO AC-BRKFST tab 10/29/16 QUEtiapine FUMARATE [SEROquel] 600 mg PO HS #28 tab 10/29/16 Sulfamethox-Tmp 800-160Mg [Bactrim 1 tab PO Q12HR #14 tab 05/19/17 DS 800-160 mg] Amoxic-Pot Clav 875-125Mg 1 tab PO Q12HR #20 tablet 09/30/20 [Augmentin 875-125] hydrOXYzine HCL [Atarax] 25 mg PO TID PRN #15 tab 09/30/20 Allergies Allergy/AdvReac Type Severity Reaction Status Date / Time No Known Allergies Allergy Verified 09/30/20 00:30 Review of Systems ROS Statement: Those systems with pertinent positive or pertinent negative responses have been documented in the HPI. ROS Other: All systems not noted in ROS Statement are negative. Past Medical History Past Medical History: GERD/Reflux Additional Past Medical History / Comment(s): chronic back pain, back tumor History of Any Multi-Drug Resistant Organisms: None Reported Past Surgical History: Tonsillectomy Past Psychological History: Anxiety, Panic Disorder Smoking Status: Current every day smoker Past Alcohol Use History: None Reported Past Drug Use History: None Reported General Exam General appearance: alert, in no apparent distress Head exam: Present: atraumatic, normocephalic, normal inspection Eye exam: Present: normal appearance, PERRL, EOMI. Absent: scleral icterus, conjunctival injection, periorbital swelling ENT exam: Present: normal exam, mucous membranes moist Neck exam: Present: normal inspection. Absent: tenderness, meningismus, lymphadenopathy Respiratory exam: Present: normal lung sounds bilaterally. Absent: respiratory distress, wheezes, rales, rhonchi, stridor Cardiovascular Exam: Present: regular rate, normal rhythm, normal heart sounds. Absent: systolic murmur, diastolic murmur, rubs, gallop, clicks GI/Abdominal exam: Present: soft, normal bowel sounds. Absent: distended, tenderness, guarding, rebound, rigid Extremities exam: Present: normal inspection, full ROM, normal capillary refill, other (Multiple bug bites of lower extremities with swelling localized). Absent: tenderness, pedal edema, joint swelling, calf tenderness Back exam: Present: normal inspection Neurological exam: Present: alert, oriented X3, CN II-XII intact Psychiatric exam: Present: normal affect, normal mood Skin exam: Present: warm, dry, intact, normal color. Absent: rash Course Vital Signs 09/30/20 09/30/20 00:28 01:19 Temperature 98.8 F 98.9 F Pulse Rate 92 94 Respiratory 18 18 Rate Blood Pressure 166/103 167/118 O2 Sat by Pulse 100 100 Oximetry - Reevaluation(s) Reevaluation #1: 09/30/20 Medical record is reviewed Patient symptoms are significantly improved here in the ER Patient is informed and results and questions answered Patient is in no acute distress Medical Decision Making - Medical Decision Making 40 female to the ER with multiple bug bites, patient placed on steroids and antibiotics and can be discharged home Disposition Clinical Impression: Bug bites Disposition: HOME SELF-CARE Condition: Good Instructions (If sedation given, give patient instructions): Insect Bite or Sting (ED) Prescriptions: hydrOXYzine HCL [Atarax] 25 mg PO TID PRN #15 tab PRN Reason: Itching Amoxic-Pot Clav 875-125Mg [Augmentin 875-125] 1 tab PO Q12HR #20 tablet Is patient prescribed a controlled substance at d/c from ED?: No Referrals: Cesar Jones MD [Primary Care Provider] - 1-2 days
[2020-09-30 01:20] VITALS: BP 167/118; PULSE 94; TEMP 98.9
[2020-09-30] MEDS ORDERED: FUROSEMIDE 20 MG TAB PO STA (01:21)
== END 2020-09-30 01:30 | disposition home or self-care (01) ==
LOC: EC 00:16
DX: S90.862A Insect bite (nonvenomous), left foot, initial encounter (principal); S90.861A Insect bite (nonvenomous), right foot, initial encounter; K21.9 Gastro-esophageal reflux disease without esophagitis; F41.9 Anxiety disorder, unspecified; F17.200 Nicotine dependence, unspecified, uncomplicated; Z79.1 Long term (current) use of non-steroidal anti-inflammatories (NSAID); Z79.82 Long term (current) use of aspirin; Z79.899 Other long term (current) drug therapy; W57.XXXA Bitten or stung by nonvenomous insect and other nonvenomous arthropods, initial encounter
CPT/HCPCS: 99282; J8540

== ENCOUNTER 2020-11-26 23:27 | Emergency (ER) | payer OTHER ==
[2020-11-26 23:39] VITALS: BP 150/84; PULSE 104; RESP 22; TEMP 98.2
== END 2020-11-27 | disposition left against medical advice (07) ==
LOC: EC 23:27
DX: Z53.21 Procedure and treatment not carried out due to patient leaving prior to being seen by health care provider (principal)
CPT/HCPCS: 99499

== ENCOUNTER → 2021-01-23 | Outpatient (CLI) | payer OTHER ==
--- NOTE | 2021-01-23 14:00 | MR ---
EXAMINATION TYPE: MR lumbar spine wo con DATE OF EXAM: 01/23/2021 COMPARISON: NONE at this institution. No prior MRI lumbar spine at [facility]. 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 TECHNIQUE: Multiplanar, multisequence imaging of the lumbar spine is performed without IV contrast. FINDINGS: Some artifact degradation on sagittal T2 weighted images noted. Sagittal images of the lumb ar spine show vertebral body heights and alignment to appear satisfactory. The intervertebral discs d emonstrate normal heights and hydration. The conus medullaris is normal in position and signal endin g mid L1 level. The bone marrow signal intensity is within normal limits. Axial images show mild to moderate facet arthropathy ligamentum flavum hypertrophy L4-L5 level effaci ng posterior lateral thecal sac and axial image 10. Mild broad disc bulge minimally effaces the anter ior thecal sac. Patent bilateral neural foramina. Axial images at L5-S1 level shows mild facet arthropathy bilaterally. Paraspinal muscle bulk is preserved. No suspicious retroperitoneal findings are evident. IMPRESSION: Mild degenerative changes lower lumbar spine as detailed above. No obvious suspicious makayla id or cystic mass.
== END | disposition home or self-care (01) ==
LOC: RADMRIMAIN 11:35
PROVIDERS: ATTEND Nurse Practitioner Adult Health
DX: D33.4 Benign neoplasm of spinal cord (principal); M51.26 Other intervertebral disc displacement, lumbar region; M47.817 Spondylosis without myelopathy or radiculopathy, lumbosacral region
CPT/HCPCS: 72148

== ENCOUNTER 2024-08-24 15:44 | Emergency (ER) | payer OTHER ==
[2024-08-24 16:09] VITALS: RESP 18
--- NOTE | 2024-08-24 16:47 | ED ---
Abdominal Pain HPI - General Chief Complaint: Abdominal Pain Stated Complaint: Abd pain Time Seen by Provider: 08/24/24 16:45 Source: patient, RN notes reviewed Mode of arrival: ambulatory - History of Present Illness Initial Comments: 44-year-old female presenting for lower abdominal cramping. States symptoms have been ongoing for 1 year but worsening in the past month, especially the past 3 days. Reports constant lower abdominal cramping on both sides. States she thinks she has an ovarian cyst. Endorses nausea but denies vomiting, fevers, urinary symptoms. States she has not been sexually active in over 3 years. She does regularly follow with an [facility] and had a LEEP procedure done on August 09. States she has not had a menstrual period in 18 months but is unsure why. - Related Data Home Medications Medication Instructions Recorded Confirmed clonazePAM [KlonoPIN] 1 mg PO Q12H PRN 08/20/13 10/29/16 DULoxetine HCL [Cymbalta] 60 mg PO DAILY 05/19/17 05/19/17 Multivitamins, Thera [Multivitamin 1 tab PO DAILY 05/19/17 05/19/17 (formulary)] Previous Rx's Medication Instructions Recorded Aspirin 81 mg PO DAILY 10/29/16 Baclofen [Lioresal] 20 mg PO BID PRN tab 10/29/16 Gabapentin [Neurontin] 300 mg PO BID #28 cap 10/29/16 Meloxicam [Mobic] 15 mg PO DAILY tab 10/29/16 Pantoprazole [Protonix] 40 mg PO AC-BRKFST tab 10/29/16 QUEtiapine FUMARATE [SEROquel] 600 mg PO HS #28 tab 10/29/16 Sulfamethox-Tmp 800-160Mg [Bactrim 1 tab PO Q12HR #14 tab 05/19/17 DS 800-160 mg] Amoxic-Pot Clav 875-125Mg 1 tab PO Q12HR #20 tablet 09/30/20 [Augmentin 875-125] hydrOXYzine HCL [Atarax] 25 mg PO TID PRN #15 tab 09/30/20 Allergies Allergy/AdvReac Type Severity Reaction Status Date / Time No Known Allergies Allergy Verified 08/24/24 16:09 Review of Systems ROS Statement: Those systems with pertinent positive or pertinent negative responses have been documented in the HPI. ROS Other: All systems not noted in ROS Statement are negative. Past Medical History Past Medical History: GERD/Reflux Additional Past Medical History / Comment(s): chronic back pain, back tumor History of Any Multi-Drug Resistant Organisms: None Reported Past Surgical History: Cholecystectomy, Tonsillectomy Past Psychological History: Anxiety, Bipolar, Depression, Panic Disorder Smoking Status: Current every day smoker, Vaper Past Alcohol Use History: None Reported Past Drug Use History: None Reported General Exam General appearance: alert, in no apparent distress Head exam: Present: atraumatic, normocephalic, normal inspection GI/Abdominal exam: Present: soft, normal bowel sounds. Absent: distended, tenderness, guarding, rebound, rigid Back exam: Absent: CVA tenderness (R), CVA tenderness (L) Neurological exam: Present: alert, oriented X3 Psychiatric exam: Present: normal affect, normal mood Skin exam: Present: warm, dry, intact, normal color. Absent: rash Course Vital Signs 08/24/24 08/24/24 16:03 20:01 Temperature 98.1 F 97.4 F L Pulse Rate 71 60 Respiratory 18 18 Rate Blood Pressure 151/84 143/91 O2 Sat by Pulse 96 96 Oximetry Medical Decision Making - Medical Decision Making Was pt. sent in by a medical professional or institution (, PA, CUSTOM HOME INSTALLER, urgent care, hospital, or custodial...) When possible be specific @ -No Did you speak to anyone other than the patient for history (EMS, parent, family, police, friend...)? What history was obtained from this source @ -No Did you review nursing and triage notes (agree or disagree)? Why? @ -I reviewed and agree with nursing and triage notes Were old charts reviewed (outside hosp., previous admission, EMS record, old EKG, old radiological studies, urgent care reports/EKG's, custodial records)? Report findings @ -No old charts were reviewed Differential Diagnosis (chest pain, altered mental status, abdominal pain women, abdominal pain men, vaginal bleeding, weakness, fever, dyspnea, syncope, headache, dizziness, GI bleed, back pain, seizure, CVA, palpatations, mental health, musculoskeletal)? @ -Differential Abdominal Pain Women: Appendicitis, Cholecystitis, diverticulosis, ischemic bowel, pancreatitis, hepatitis, UTI, gastroenteritis, AAA, incarcerated hernia, bowel obstruction, constipation, inflammatory bowel, hepatitis, peptic ulcer disease, splenic infarction, perforated viscus, vulvitis, ovarian torsion, PID, kidney stone, placenta abruption, this is not meant to be an all-inclusive list EKG interpreted by me (3pts min.). @ -None X-rays interpreted by me (1pt min.). @ -None done CT interpreted by me (1pt min.). 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 min.). @ -Pelvic ultrasound reveals no acute abnormality What testing was considered but not performed or refused? (CT, X-rays, U/S, labs)? Why? @ -None What meds were considered but not given or refused? Why? @ -None Did you discuss the management of the patient with other professionals (professionals i.e. , PA, CUSTOM HOME INSTALLER, lab, RT, psych nurse, social work manager, radiotelegraphist, teacher, cra officer, rifle case repairer)? Give summary @ -No Was smoking cessation discussed for >3mins.? @ -No Was critical care preformed (if so, how long)? @ -No Were there social determinants of health that impacted care today? How? (Homelessness, low income, unemployed, alcoholism, drug addiction, transportation, low edu. Level, literacy, decrease access to med. care, residential, rehab)? @ -No Was there de-escalation of care discussed even if they declined (Discuss DNR or withdrawal of care, Hospice)? DNR status @ -No What co-morbidities impacted this encounter? (DM, HTN, Smoking, COPD, CAD, Cancer, CVA, ARF, Chemo, Hep., AIDS, mental health diagnosis, sleep apnea, morbid obesity)? @ -None Was patient admitted / discharged? Hospital course, mention meds given and route, prescriptions, significant lab abnormalities, going to OR and other pertinent info. @ -Discharge. Patient was provided with IV fluids, Toradol, and Zofran. Lab work remarkable for white blood cell count of 10, lactic acidosis of 2.5, mildly bumped LFTs. Urinalysis highly contaminated sample, likely indicative of UTI given no urinary symptoms. Urine culture sent. Upon reevaluation, patient reports persistent pain. CT abdomen pelvis been performed and showed no acute process. Repeat lactic acid 0.8. Findings discussed with patient. I do not identify emergent etiology causing symptoms today. Advised to follow-up closely with PCP and gynecology for further testing. Appropriate return precautions discussed. Case was discussed with my ED attending Dr. Coffey Undiagnosed new problem with uncertain prognosis? @ -No Drug Therapy requiring intensive monitoring for toxicity (Heparin, Nitro, Insulin, Cardizem)? @ -No Were any procedures done? @ -No Diagnosis/symptom? @ -Abdominal pain Acute, or Chronic, or Acute on Chronic? @ -Acute Uncomplicated (without systemic symptoms) or Complicated (systemic symptoms)? @ -Uncomplicated Side effects of treatment? @ -No Exacerbation, Progression, or Severe Exacerbation? @ -No Poses a threat to life or bodily function? How? (Chest pain, [place], [place], pneumonia, PE, COPD, DKA, ARF, appy, cholecystitis, CVA, Diverticulitis, Homicidal, Suicidal, threat to staff... and all critical care pts) @ -No - Lab Data Result diagrams: 08/24/24 16:30 08/24/24 16:30 Lab Results 08/24/24 08/24/24 08/24/24 Range/Units 16:30 16:30 16:30 WBC 10.23 H (4.50-10.00) 10*3/uL RBC 4.53 (4.10-5.20) 10*6/uL Hgb 13.6 (12.0-15.0) g/dL Hct 39.4 (37.2-46.3) % MCV 87.0 (80.0-97.0) fL MCH 30.0 (27.0-32.0) pg MCHC 34.5 (32.0-37.0) g/dL Plt Count 297 (140-440) 10*3/uL MPV 11.3 (9.5-12.2) fL Immature Gran % (Auto) 0.4 % Neutrophils % 51.9 % Lymphocytes % 40.1 % Monocytes % 4.5 % Eosinophils % 2.5 % Basophils % 0.6 % Immature Gran # 0.04 (0.00-0.04) 10*3/uL Neutrophils # 5.31 (1.80-7.70) 10*3/uL Lymphocytes # 4.10 (0.90-5.00) 10*3/uL Monocytes # 0.46 (0.20-1.00) 10*3/uL Eosinophils # 0.26 (0.04-0.35) 10*3/uL Basophils # 0.06 (0.00-0.10) 10*3/uL Sodium (137-145) mmol/L Potassium (3.5-5.1) mmol/L Chloride (98-107) mmol/L Carbon Dioxide (22-30) mmol/L Anion Gap mmol/L BUN (7-17) mg/dL Creatinine (0.52-1.04) mg/dL Est GFR (CKD-EPI)AfAm (>60 ml/min/1.73 sqM) Est GFR (CKD-EPI)NonAf (>60 ml/min/1.73 sqM) Glucose (74-99) mg/dL Lactic Ac Sepsis Rflx Plasma Lactic Acid Jaswinder (0.7-2.0) mmol/L Calcium (8.4-10.2) mg/dL Total Bilirubin (0.2-1.3) mg/dL AST (14-36) U/L ALT (4-34) U/L Alkaline Phosphatase (38-126) U/L Total Protein (6.3-8.2) g/dL Albumin (3.5-5.0) g/dL Urine Color Yellow Urine Appearance Cloudy H (Clear) Urine pH 6.5 (5.0-8.0) Ur Specific [place] 1.024 (1.001-1.035) Urine Protein Trace H (Negative) Urine Glucose (UA) Negative (Negative) Urine Ketones Negative (Negative) Urine Blood Negative (Negative) Urine Nitrite Negative (Negative) Urine Bilirubin Negative (Negative) Urine Urobilinogen 2.0 (<2.0) mg/dL Ur Leukocyte Esterase Large H (Negative) Urine RBC 4 (0-5) /hpf Urine WBC 28 H (0-5) /hpf Ur Squamous Epith Cells 12 H (0-4) /hpf Urine Mucus Few H (None) /hpf Urine HCG, Qual Not Detected (Not Detectd) 08/24/24 08/24/24 08/24/24 Range/Units 16:30 16:30 17:07 WBC (4.50-10.00) 10*3/uL RBC (4.10-5.20) 10*6/uL Hgb (12.0-15.0) g/dL Hct (37.2-46.3) % MCV (80.0-97.0) fL MCH (27.0-32.0) pg MCHC (32.0-37.0) g/dL Plt Count (140-440) 10*3/uL MPV (9.5-12.2) fL Immature Gran % (Auto) % Neutrophils % % Lymphocytes % % Monocytes % % Eosinophils % % Basophils % % Immature Gran # (0.00-0.04) 10*3/uL Neutrophils # (1.80-7.70) 10*3/uL Lymphocytes # (0.90-5.00) 10*3/uL Monocytes # (0.20-1.00) 10*3/uL Eosinophils # (0.04-0.35) 10*3/uL Basophils # (0.00-0.10) 10*3/uL Sodium 141 (137-145) mmol/L Potassium 4.2 (3.5-5.1) mmol/L Chloride 103 (98-107) mmol/L Carbon Dioxide 27 (22-30) mmol/L Anion Gap 11 mmol/L BUN 9 (7-17) mg/dL Creatinine 0.63 (0.52-1.04) mg/dL Est GFR (CKD-EPI)AfAm >90 (>60 ml/min/1.73 sqM) Est GFR (CKD-EPI)NonAf >90 (>60 ml/min/1.73 sqM) Glucose 150 H (74-99) mg/dL Lactic Ac Sepsis Rflx Y Plasma Lactic Acid Jaswinder 2.5 H* (0.7-2.0) mmol/L Calcium 9.8 (8.4-10.2) mg/dL Total Bilirubin 0.4 (0.2-1.3) mg/dL AST 59 H (14-36) U/L ALT 67 H (4-34) U/L Alkaline Phosphatase 102 (38-126) U/L Total Protein 7.3 (6.3-8.2) g/dL Albumin 4.6 (3.5-5.0) g/dL Urine Color Urine Appearance (Clear) Urine pH (5.0-8.0) Ur Specific [place] (1.001-1.035) Urine Protein (Negative) Urine Glucose (UA) (Negative) Urine Ketones (Negative) Urine Blood (Negative) Urine Nitrite (Negative) Urine Bilirubin (Negative) Urine Urobilinogen (<2.0) mg/dL Ur Leukocyte Esterase (Negative) Urine RBC (0-5) /hpf Urine WBC (0-5) /hpf Ur Squamous Epith Cells (0-4) /hpf Urine Mucus (None) /hpf Urine HCG, Qual (Not Detectd) 08/24/24 Range/Units 19:35 WBC (4.50-10.00) 10*3/uL RBC (4.10-5.20) 10*6/uL Hgb (12.0-15.0) g/dL Hct (37.2-46.3) % MCV (80.0-97.0) fL MCH (27.0-32.0) pg MCHC (32.0-37.0) g/dL Plt Count (140-440) 10*3/uL MPV (9.5-12.2) fL Immature Gran % (Auto) % Neutrophils % % Lymphocytes % % Monocytes % % Eosinophils % % Basophils % % Immature Gran # (0.00-0.04) 10*3/uL Neutrophils # (1.80-7.70) 10*3/uL Lymphocytes # (0.90-5.00) 10*3/uL Monocytes # (0.20-1.00) 10*3/uL Eosinophils # (0.04-0.35) 10*3/uL Basophils # (0.00-0.10) 10*3/uL Sodium (137-145) mmol/L Potassium (3.5-5.1) mmol/L Chloride (98-107) mmol/L Carbon Dioxide (22-30) mmol/L Anion Gap mmol/L BUN (7-17) mg/dL Creatinine (0.52-1.04) mg/dL Est GFR (CKD-EPI)AfAm (>60 ml/min/1.73 sqM) Est GFR (CKD-EPI)NonAf (>60 ml/min/1.73 sqM) Glucose (74-99) mg/dL Lactic Ac Sepsis Rflx Plasma Lactic Acid Jaswinder 0.8 (0.7-2.0) mmol/L Calcium (8.4-10.2) mg/dL Total Bilirubin (0.2-1.3) mg/dL AST (14-36) U/L ALT (4-34) U/L Alkaline Phosphatase (38-126) U/L Total Protein (6.3-8.2) g/dL Albumin (3.5-5.0) g/dL Urine Color Urine Appearance (Clear) Urine pH (5.0-8.0) Ur Specific [place] (1.001-1.035) Urine Protein (Negative) Urine Glucose (UA) (Negative) Urine Ketones (Negative) Urine Blood (Negative) Urine Nitrite (Negative) Urine Bilirubin (Negative) Urine Urobilinogen (<2.0) mg/dL Ur Leukocyte Esterase (Negative) Urine RBC (0-5) /hpf Urine WBC (0-5) /hpf Ur Squamous Epith Cells (0-4) /hpf Urine Mucus (None) /hpf Urine HCG, Qual (Not Detectd) Disposition Clinical Impression: Abdominal pain Disposition: HOME SELF-CARE Condition: Stable Instructions (If sedation given, give patient instructions): Abdominal Pain (ED) Additional Instructions: Follow-up with your PCP/city planning teacher as discussed. Please return to the Emergency Department if symptoms worsen or any other concerns. Is patient prescribed a controlled substance at d/c from ED?: No Referrals: Aicha Irving MD [Primary Care Provider] - 1-2 days Time of Disposition: 21:05
[2024-08-24 16:50] LABS: Basophils # (A) 0.06 10*3/uL (0.00-0.10); Basophils % (A) 0.6 %; Eosinophils # (A) 0.26 10*3/uL (0.04-0.35); Eosinophils % (A) 2.5 %; HCT 39.4 % (37.2-46.3); HGB 13.6 g/dL (12.0-15.0); Lymphocytes # (A) 4.10 10*3/uL (0.90-5.00); Lymphocytes % (A) 40.1 %; MCH 30.0 pg (27.0-32.0); MCHC 34.5 g/dL (32.0-37.0); MCV 87.0 fL (80.0-97.0); Monocytes # (A) 0.46 10*3/uL (0.20-1.00); Monocytes % (A) 4.5 %; Neutrophils # (A) 5.31 10*3/uL (1.80-7.70); Neutrophils % (A) 51.9 %; Platelet Count 297 10*3/uL (140-440); RBC 4.53 10*6/uL (4.10-5.20); RDW 12.3 % (11.5-14.5); WBC 10.23 10*3/uL (4.50-10.00)
[2024-08-24] MEDS: SODIUM CHLORIDE 0.9% 1,000 ML IV STA ×2 (16:59→20:06)
[2024-08-24] MEDS: KETOROLAC 15 MG/ML 1 ML VIAL IVP STA ×2 (17:00→20:04)
[2024-08-24] MEDS: ONDANSETRON 4 MG/2 ML VIAL IVP STA (17:00)
[2024-08-24 17:02] LABS: ALT 67 U/L (4-34); AST 59 U/L (14-36); African American GFR (CKD) >90 (>60 ml/min/1.73 sqM); Albumin 4.6 g/dL (3.5-5.0); Alkaline Phosphatase 102 U/L (38-126); Anion Gap 11 mmol/L; Blood Urea Nitrogen 9 mg/dL (7-17); Calcium 9.8 mg/dL (8.4-10.2); Carbon Dioxide 27 mmol/L (22-30); Chloride 103 mmol/L (98-107); Glucose 150 mg/dL (74-99); Non-African American GFR(CKD) >90 (>60 ml/min/1.73 sqM); Potassium 4.2 mmol/L (3.5-5.1); Sodium 141 mmol/L (137-145); Total Protein 7.3 g/dL (6.3-8.2)
[2024-08-24 17:10] LABS: Bilirubin,Urine Negative (Negative); Blood,Urine Negative (Negative); Color,Urine Yellow; Glucose,Urine (UA) Negative (Negative); Ketones,Urine Negative (Negative); Leukocyte Esterase,Urine Large (Negative); Mucus,Urine Few /hpf; Nitrite,Urine Negative (Negative); PH, Urine 6.5 (5.0-8.0); Protein,Urine Trace (Negative); RBC,Urine 4 /hpf (0-5); Specific Gravity,Urine 1.024 (1.001-1.035); Squamous Epithelial Cell,Urine 12 /hpf (0-4); Urobilinogen,Urine 2.0 mg/dL (<2.0); WBC,Urine 28 /hpf (0-5)
--- NOTE | 2024-08-24 18:04 | US ---
EXAMINATION TYPE: US transvaginal DATE OF EXAM: 08/24/2024 COMPARISON: NONE CLINICAL INDICATION: Female, 44 years old with history of lower abd pain; Recent LEEP. Cramping x 1 year but has been worsening. TECHNIQUE: Transvaginal (TV). Transvaginal grayscale sonographic images of the pelvis were acquired. Doppler imaging: Color Doppler Images were obtained. Spectral doppler images were obtained. FINDINGS: Date of LMP: Unknown, EXAM MEASUREMENTS: Uterus: 7.6 x 5.0 x 4.4 cm Endometrial Stripe: 0.2 cm Right Ovary: 2.6 x 1.6 x 0.9 cm Left Ovary: 2.5 x 2.0 x 1.5 cm 1. Uterus: Anteverted wnl 2. Endometrium: wnl 3. Right Ovary: wnl 4. Left Ovary: wnl Spectral, color and waveform doppler imaging shows good arterial and venous flow within the ovaries ; there is no evidence for ovarian torsion. 5. Bilateral Adnexa: no free fluid 6. Posterior cul-de-sac: no free fluid IMPRESSION: 1. No evidence for acute process. 2. Endometrium within normal limits for thickness possibly. No fluid collections identified. 3. Appropriate arterial and venous spectral waveforms to the ovaries. [facility], , 08/24/2024 6:01 PM
--- NOTE | 2024-08-24 19:36 | CT ---
EXAMINATION TYPE: CT abdomen pelvis w con CT DLP: 1331.2 mGycm, Automated exposure control for dose reduction was used. DATE OF EXAM: 08/24/2024 7:17 PM COMPARISON: Ultrasound transvaginal 08/24/2024 CLINICAL INDICATION:Female, 44 years old with history of lower abd pain; abdominal pain TECHNIQUE: Standard CT of the abdomen and pelvis following the administration of 100 cc of Isovue 3 00 IV contrast material. Coronal and sagittal reformats were performed. FINDINGS: LOWER CHEST: There is is lung bases are clear. Mild cardiomegaly. ABDOMEN LIVER: Diffusely hypoattenuating parenchyma. Mildly enlarged measuring 19.7 cm in CC dimension. No fo harsh lesion identified. GALLBLADDER AND BILE DUCTS: The gallbladder is surgically absent. No significant biliary ductal dilat ation. PANCREAS: Unremarkable. SPLEEN: Unremarkable. ADRENAL GLANDS: Unremarkable right adrenal gland. Left adrenal gland nodule measuring 1.6 cm with a H [place] unit of 49. KIDNEYS AND URETERS: No evidence of hydronephrosis or renal calculus. The kidneys enhance symmetrical ly. Few small left renal cysts. No follow up recommended. Contrast is demonstrated within both collec ting systems and proximal ureters on the delayed phase. PELVIS BLADDER: Unremarkable REPRODUCTIVE: Unremarkable. ABDOMEN & PELVIS STOMACH AND BOWEL: No evidence for hilar hernia. Intestinal malrotation with failure of the duodenum and across midline.There is associated mesenteric vessel swirling. No focal bowel wall thickening or surrounding inflammatory changes. No pneumatosis. The appendix is within normal limits. No evidence o f bowel obstruction. PERITONEUM: No evidence of pneumoperitoneum or free fluid. VASCULATURE: No evidence of aortic aneurysm. Single pelvic phlebolith. MUSCULOSKELETAL: No acute osseous abnormalities. Mild dextrocurvature of the thoracolumbar spine. LYMPH NODES: No evidence for lymphadenopathy. SOFT TISSUE/ABDOMINAL WALL: Diastases rectus. IMPRESSION: 1. No CT evidence for acute abdominal/pelvic process. 2. Mild hepatomegaly with diffuse hepatic steatosis. 3. Evidence of congenital intestinal malrotation without evidence for obstruction or inflammatory kenton nges. 4. Left adrenal gland 1.6 cm indeterminate nodule. Probably benign, consider 12 month follow-up adren al CT. [facility], , 08/24/2024 7:33 PM
[2024-08-24 21:22] VITALS: BP 144/82; PULSE 68; TEMP 97.6
== END 2024-08-24 21:21 | disposition home or self-care (01) ==
LOC: EC 15:44
DX: R10.31 Right lower quadrant pain (principal); R10.32 Left lower quadrant pain; F17.290 Nicotine dependence, other tobacco product, uncomplicated
CPT/HCPCS: 36415; 80053; 83605; 85025; 81001; 81025; 87086; 93975; 76830; 74177; 99284; 96374; 96375; 96376; 96361; J2405; J1885; Q9967